=== PATIENT | female | born 1970 | race Caucasian/White ===

== ENCOUNTER 2017-03-09 21:43 | Emergency (ER) | payer OTHER ==
[~2017-03-09] VITALS: Ht 170.2 cm; Wt 100.0 kg
[2017-03-09 21:54] VITALS: BP 147/82; PULSE 87; RESP 24; O2SAT 96
--- NOTE | 2017-03-09 21:58 | ED.REPORT ---
HPI-Abd Pain F 2 and Over Date of Service March 09, 2017 ED Provider: Ifeanyi Shi MD The pt is a 46 y/o female w/ a hx of suicidal tendencies, alcoholism, and depression presenting to the ED via EMS due to threats of suicide earlier today. The pt reports drinking three [place] ice teas and threatening to cut her own throat. She believes that this is related to recent stress at home. She also is on Pristiq which she took at 0700 today. Her last episode of suicidal ideation was 19 years ago when she threatened to kill herself and her daughter. She spent 5 days at [facility] after this episode. The pt reports having suicidal tendencies since she was 14 years old and has been seen for psychological evaluation for the last 19 years. Her father is an alcoholic and she suspects alcoholism runs in her mother's side of the family as well. Nursing Notes Stated Complaint: MENTAL HEALTH EVAL. Chief Complaint: Psychiatric Complaint Nursing Notes Reviewed: Yes Allergies: Coded Allergies: codeine (Verified Allergy, Unknown, 03/09/17) lamotrigine (Verified Allergy, Unknown, 03/09/17) General Time Seen by MD: 21:50 Chief Complaint Other (Suicidal ideation) Hx Obtained from: Patient, EMS Arrived by: Ambulance Sudden in Onset?: No Recent Healthcare: No recent doctor visit, No recent hospitalization Similar Sx Previous: Yes Risk Factors Suicide Risk Stratification Suicide Risk Factors - Adult: : Alcohol use: Previous attempt: Prior psych admissionNo: Access to firearms RF Statements: Risk factors reviewed Past Medical History Past Medical History Alcoholism Suicidal ideation Attempted suicide Reports: Depression Past Surgical History None reported Family History Alcoholism Smoking History Unknown if Ever Smoker Social History THC use Ambulatory Status Ambulatory Status: Independent Review of Systems Unable to Obtain ROS Intoxicated Physical Exam Initial Vital Signs Vital Signs (First) Date Time Temp Pulse Resp B/P Pulse Ox O2 Delivery O2 Flow Rate FiO2 03/09/17 21:54 36.6 87 24 147/82 96 Room Air Initial VS: Reviewed General / Constitutional: Awake, Alert Smells of alcohol Ambulatory with steady gait Contrite Respiratory / Chest: Breath sounds NL, Breath sounds = bilat, No respiratory distress, No rales, No rhonchi, No wheezing Cardiovascular: Heart rate NL, Regular rhythm, Heart sounds NL, No gallop, No murmurs, No rubs Abdomen: Soft, Non-tender Back: Inspection NL, Full range of motion Head / Eyes: Atraumatic, Normocephalic Skin: Color NL, Warm, Dry Neck: Supple, Full range of motion Lower Extremity / Pelvis / MS: Gait NL Psychiatric: Affect NL, Mood NL, Not suicidal, No hallucinations, Judgment/ insight NL Interpretation & Diagnostics Lab Results Interpretation Test 03/09/17 22:24 Hold Urine Received (Received) Lab Results Interpretation: Urine negative Urine drug screen positive for THC only Blood alcohol by breathalyzer 0.127 Re-Eval/Medical Decision Med Decision/Clinical Course 46-year-old female with a history of suicidal ideation though no serious attempts in many years. Tonight while intoxicated made suicidal statements. Is now sobered contrite and not suicidal. Family is present and would like to take her home. feels comfortable that he can manage her. Patient is agreeable to being safe and agreeable to following up with her regular counselor. Re-Evaluation/Progress : Time of Eval: 00:43 Re-Evaluation/Progress Note: Pt had a blood alcohol level of .067. She is persistently saying she is not suicidal and reports feeling comfortable taking her home. There are weapons in the house but are not accessible to the pt. Discussed plans for discharge. Pt and her family understand and agree with the plan. All questions are addressed at this time. Counseled Regarding: Diagnosis, Lab results, Need for follow-up, When/why to return to ED Discharge & Departure Impression: Primary Impression: Alcohol intoxication Complication of substance-induced condition: uncomplicated Qualified Code: F10.120 - Alcohol abuse with intoxication, uncomplicated Additional Impression: Suicidal ideations Disposition: Home Discharge Condition All VS Reviewed: Yes Condition: Stable Additional Instructions: Do not drink alcohol. Return emergency department if having increasing thoughts of harming yourself or if family is concerned. Contact your counselor on Sunday for follow-up as soon as possible. Continue previous home medications. Referrals: Willem España MD (PCP) Scribe Attestation Portions of this note were transcribed by Master Rivera and Ankush Cordero. I, Dr. Shi personally performed the history, physical exam and medical decision- making; I reviewed and confirmed the accuracy of the information in the transcribed note. Signed by: Master Rivera and Ankush Cordero, Scribes, 03/10/17 and 0243. Willem España MD, Tai F March 09, 2017 21:58 Ifeanyi Shi MD March 10, 2017 00:44 ANKUSH CORDERO March 10, 2017 02:34
[2017-03-10 01:16] VITALS: BP 147/82; PULSE 87; RESP 24; O2SAT 96
== END 2017-03-10 01:16 | disposition home or self-care (01) ==
LOC: SED 21:43 → EDSEX 21:43 → EDBD 21:43 → SED 03-10 01:16
DX: F10.120 Alcohol abuse with intoxication, uncomplicated (principal); Y90.3 Blood alcohol level of 60-79 mg/100 ml; R45.851 Suicidal ideations; Z88.5 Allergy status to narcotic agent; Z88.8 Allergy status to other drugs, medicaments and biological substances